=== PATIENT | male | born 1990 | race Caucasian/White ===

== ENCOUNTER 2024-12-02 10:13 | Emergency (ER) | payer BC ==
[2024-12-02 10:56] LABS: BASOPHILS ABSOLUTE AUTO 0.04 10^3/uL (0.00-0.10); BASOPHILS PERCENT AUTO 0.6 % (0.0-1.0); EOSINOPHILS ABSOLUTE AUTO 0.20 10^3/uL (0.10-0.30); EOSINOPHILS PERCENT AUTO 3.0 % (1.0-3.0); IMMATURE GRAN ABSOLUTE AUTO 0.01 10^3/uL (0.00-0.04); IMMATURE GRAN PERCENT AUTO 0.2 % (0.0-0.4); LYMPHOCYTES ABSOLUTE AUTO 2.16 10^3/uL (1.00-4.00); LYMPHOCYTES PERCENT AUTO 32.4 % (20.0-40.0); MEAN PLATELET VOLUME 9.3 fL (7.4-10.4); MONOCYTES ABSOLUTE AUTO 0.51 10^3/uL (0.10-0.80); MONOCYTES PERCENT AUTO 7.7 % (2.0-8.0); NEUTROPHILS ABSOLUTE AUTO 3.74 10^3/uL (2.50-7.00); NEUTROPHILS PERCENT AUTO 56.1 % (50.0-70.0); PLATELET COUNT,PLT 267 10^3/uL (150-400); RED BLOOD CELL COUNT 5.34 10^6/uL (4.50-6.00); RED CELL DISTRIBUTION WIDTH 14.0 % (11.5-14.5); WHITE BLOOD CELL COUNT,WBC 6.66 10^3/uL (5.00-10.00)
[2024-12-02 11:12] LABS: ALANINE AMINOTRANSFERASE,ALT 94.0 U/L (14-63); ASPARTATE AMNIOTRANSFERASE,AST 56.0 U/L (15-37); BILIRUBIN TOTAL 0.4 mg/dL (0.2-1.0); BLOOD UREA NITROGEN,BUN 18.0 mg/dL (7-18); CARBON DIOXIDE,CO2 31.5 mmol/L (21.0-32.0); CHLORIDE,CL 102.0 mmol/L (98-107); CREATININE 0.75 mg/dL (0.51-1.17); EST CRCL DRUG DOSING (CG) 141.4 mL/min; GLUCOSE RANDOM 113.0 mg/dL (70-140); POTASSIUM,K 4.3 mmol/L (3.5-5.1); PROTEIN TOTAL,TP 7.8 g/dL (6.4-8.2); SODIUM,NA 141.0 mmol/L (136-145)
[2024-12-02 11:14] LABS: ESTIMATED GFR 123.0 mL/min (>=60)
== END 2024-12-02 12:00 | disposition home or self-care (01) ==
LOC: KA.ED 10:13
DX: I10 Essential (primary) hypertension (principal); Z88.1 Allergy status to other antibiotic agents; Z79.899 Other long term (current) drug therapy; Z87.891 Personal history of nicotine dependence
CPT/HCPCS: 36415; 80053; 85025; 99283; 99284